=== PATIENT | female | born 1960 | race Caucasian/White ===

== ENCOUNTER → 2017-04-08 | Outpatient (CLI) | payer OTHER ==
[2017-04-08 09:46] LABS: ALBUMIN 3.9 GM/DL (3.2-5.2); ALBUMIN/GLOBULIN RATIO 1.18 (1.00-1.93); ALKALINE PHOSPHATASE 52 U/L (45-117); ALT/SGPT 20 U/L (12-78); ANION GAP 7 MEQ/L (8-16); AST/SGOT 9 U/L (7-37); BILIRUBIN,TOTAL 0.3 MG/DL (0.2-1.0); BLOOD UREA NITROGEN 20 MG/DL (7-18); CARBON DIOXIDE LEVEL 26 MEQ/L (21-32); CHLORIDE LEVEL 108 MEQ/L (98-107); CHOLESTEROL LEVEL 172 MG/DL (<200); CHOLESTEROL RISK RATIO 4.526 (<5); CREATININE FOR GFR 0.73 MG/DL (0.55-1.30); GLOMERULAR FILTRATION RATE > 60.0 (>51); GLUCOSE, FASTING 96 MG/DL (70-100); HDL CHOLESTEROL 38 MG/DL (>40); LDL CHOLESTEROL 118.4 MG/DL (<100); NON-HDL-C 134 MG/DL; POTASSIUM SERUM 4.3 MEQ/L (3.5-5.1); SODIUM LEVEL 141 MEQ/L (136-145); TOTAL PROTEIN 7.2 GM/DL (6.4-8.2); TRIGLYCERIDES LEVEL 78 MG/DL (<150)
[2017-04-10 09:17] LABS: TOTAL 25(OH) VITAMIN D 21.2 NG/ML (30.0-100.0)
== END ==
LOC: M LAB 08:33
DX: E55.9 Vitamin D deficiency, unspecified (principal); E78.00 Pure hypercholesterolemia, unspecified; F17.210 Nicotine dependence, cigarettes, uncomplicated
CPT/HCPCS: 84443

== ENCOUNTER → 2017-04-14 | Outpatient (CLI) | payer OTHER | LOC: M RAD 08:05 | DX: Z12.31 Encounter for screening mammogram for malignant neoplasm of breast (principal) | CPT/HCPCS: 77067 ==

== ENCOUNTER → 2017-04-26 | Outpatient (CLI) | payer OTHER | LOC: M EKG 11:41 | DX: Z01.818 Encounter for other preprocedural examination (principal) | CPT/HCPCS: 93005 ==

== ENCOUNTER 2017-05-01 09:29 | Day surgery (SDC) | payer OTHER ==
[~2017-05-01 09:29] MED LIST: KETOROLAC 60 MG/2 ML VIAL (J1885) As Ordered; LIDOCAINE 2% INJ 100 MG/5 ML SDV (FOR ANES.) As Ordered; ONDANSETRON 4MG/2ML VIAL (J2405) As Ordered; PROPOFOL 200 MG/20 ML VIAL As Ordered; ROCURONIUM BROMIDE 50 MG/5 ML VIAL As Ordered; dexameTHASONE 4 MG/ML 1ML VIAL (J1100) As Ordered
[2017-05-01] MEDS: METHYLENE BLUE 0.5% (5MG/ML) 10 ML AMP (PROVAYBLUE)(Q9968 PER 1MG) As Ordered (09:33)
[2017-05-01] MEDS ORDERED: ceFAZolin 2 GM/D5W 50 ML IV BAG (J0690 PER 500MG) As Ordered (09:37)
[2017-05-01] MEDS: LR 1,000 ML IV ×4 (09:45→20:58)
[2017-05-01 09:57] LABS: HEMATOCRIT 47.3 % (36.0-47.0); HEMOGLOBIN 15.9 g/dl (12.0-16.0); MEAN CORPUSCULAR HEMOGLOBIN 30.8 pg (27.0-33.0); MEAN CORPUSCULAR HGB CONC 33.6 g/dl (32.0-36.5); MEAN CORPUSCULAR VOLUME 91.5 fl (80.0-96.0); PLATELET COUNT, AUTOMATED 356 10^3/uL (150-450); RED BLOOD COUNT 5.17 10^6/uL (4.00-5.40); RED CELL DISTRIBUTION WIDTH 13.2 % (11.5-14.5); WHITE BLOOD COUNT 8.8 10^3/uL (4.0-10.0)
[2017-05-01 10:12] LABS: ANION GAP 9 MEQ/L (8-16); BLOOD UREA NITROGEN 13 MG/DL (7-18); CALCIUM LEVEL 9.4 MG/DL (8.5-10.1); CARBON DIOXIDE LEVEL 29 MEQ/L (21-32); CHLORIDE LEVEL 102 MEQ/L (98-107); CREATININE FOR GFR 0.86 MG/DL (0.55-1.30); GLOMERULAR FILTRATION RATE > 60.0 (>51); GLUCOSE, FASTING 105 MG/DL (70-100); POTASSIUM SERUM 3.9 MEQ/L (3.5-5.1); SODIUM LEVEL 140 MEQ/L (136-145)
[2017-05-01] MEDS: ACETAMINOPHEN 650 MG SUPP As Ordered (11:05)
[2017-05-01] MEDS ORDERED: fentaNYL 250 MCG/5 ML INJECTION (J3010) As Ordered (12:47)
[2017-05-01] MEDS ORDERED: PHENYLephrine HCL 500 MCG/5 ML (100MCG/ML) SYRINGE (J2370) As Ordered (12:47)
[2017-05-01] MEDS ORDERED: MIDAZOLAM INJ 2 MG/2 ML VIAL (J2250) As Ordered (12:47)
[2017-05-01] MEDS ORDERED: fentaNYL 100 MCG/2 ML INJECTION (J3010) As Ordered (13:11)
[2017-05-01] MEDS ORDERED: ROCURONIUM BROMIDE 50 MG/5 ML VIAL As Ordered ×2 (13:46)
[2017-05-01] MEDS: FLUORESCEIN 10% (100MG/ML) 5 ML VIAL As Ordered (14:00)
[2017-05-01] MEDS: BUPIVACAINE HCL 0.25% 30 ML VIAL As Ordered (15:02)
[2017-05-01] MEDS: LIDOCAINE W/EPINEPHRINE 1% 20ML VIAL As Ordered (15:15)
[2017-05-01] MEDS ORDERED: MEPERIDINE INJ 25 MG/ML VIAL (J2175) As Ordered (15:54)
[2017-05-01] MEDS: MEPERIDINE INJ 25 MG/ML VIAL (J2175) IV ×2 (16:00→16:05)
[2017-05-01] MEDS ORDERED: KETOROLAC 30 MG/ML VIAL (J1885) IV (16:15)
[2017-05-01] MEDS ORDERED: ONDANSETRON 4MG/2ML VIAL (J2405) IV (16:15)
[2017-05-01] MEDS ORDERED: PERCOCET 5MG/325MG TAB PO (16:15)
[2017-05-01] MEDS ORDERED: fentaNYL 100 MCG/2 ML INJECTION (J3010) IV (16:15)
[2017-05-01] MEDS: PERCOCET 5MG/325MG TAB PO (17:04)
[2017-05-01] MEDS: SIMETHICONE 80 MG CHEW TAB PO (19:15)
[2017-05-01] MEDS: CEFAZOLIN SOD 1 GM in APPROPRIATE DILUENT 1 EA IV (20:57)
[2017-05-02] MEDS: SIMETHICONE 80 MG CHEW TAB PO ×2 (00:48→06:29)
[2017-05-02] MEDS: IBUPROFEN 800 MG TAB PO ×2 (00:48→06:29)
== END 2017-05-02 10:00 | disposition home or self-care (01) ==
LOC: M SDC 09:29 → M PED 17:19
DX: N81.89 Other female genital prolapse (principal); K21.9 Gastro-esophageal reflux disease without esophagitis; G43.909 Migraine, unspecified, not intractable, without status migrainosus; T88.59XD Other complications of anesthesia, subsequent encounter; Z79.899 Other long term (current) drug therapy; Z98.51 Tubal ligation status; Z90.710 Acquired absence of both cervix and uterus; Z72.0 Tobacco use
CPT/HCPCS: 57288

== ENCOUNTER → 2017-05-23 | Outpatient (CLI) | payer OTHER ==
[2017-05-23 09:53] LABS: HEMATOCRIT 45.4 % (36.0-47.0); HEMOGLOBIN 14.9 g/dl (12.0-16.0); MEAN CORPUSCULAR HEMOGLOBIN 29.8 pg (27.0-33.0); MEAN CORPUSCULAR HGB CONC 32.8 g/dl (32.0-36.5); MEAN CORPUSCULAR VOLUME 90.8 fl (80.0-96.0); PLATELET COUNT, AUTOMATED 343 10^3/uL (150-450); RED CELL DISTRIBUTION WIDTH 13.4 % (11.5-14.5); WHITE BLOOD COUNT 7.3 10^3/uL (4.0-10.0)
[2017-05-23 10:32] LABS: ALBUMIN 3.7 GM/DL (3.2-5.2); ALBUMIN/GLOBULIN RATIO 1.12 (1.00-1.93); ALKALINE PHOSPHATASE 50 U/L (45-117); ALT/SGPT 19 U/L (12-78); ANION GAP 7 MEQ/L (8-16); AST/SGOT 13 U/L (7-37); BILIRUBIN,DIRECT 0.1 MG/DL (0.0-0.2); BILIRUBIN,TOTAL 0.3 MG/DL (0.2-1.0); BLOOD UREA NITROGEN 22 MG/DL (7-18); CALCIUM LEVEL 9.3 MG/DL (8.5-10.1); CARBON DIOXIDE LEVEL 31 MEQ/L (21-32); CHLORIDE LEVEL 104 MEQ/L (98-107); GLOMERULAR FILTRATION RATE > 60.0 (>51); GLUCOSE, FASTING 95 MG/DL (70-100); PHOSPHORUS LEVEL 3.7 MG/DL (2.5-4.9); POTASSIUM SERUM 4.2 MEQ/L (3.5-5.1); SODIUM LEVEL 142 MEQ/L (136-145)
== END ==
LOC: M LAB 09:22
DX: B35.1 Tinea unguium (principal); Z79.899 Other long term (current) drug therapy
CPT/HCPCS: 80076

== ENCOUNTER 2017-07-05 06:34 | Day surgery (SDC) | payer OTHER ==
[2017-07-05] MEDS: NS 1,000 ML IV (07:00)
[2017-07-05] MEDS ORDERED: LIDOCAINE 2% INJ 100 MG/5 ML SDV (FOR ANES.) As Ordered (07:24)
[2017-07-05] MEDS ORDERED: fentaNYL 100 MCG/2 ML INJECTION (J3010) As Ordered (07:24)
[2017-07-05] MEDS ORDERED: PROPOFOL 500 MG/50 ML VIAL As Ordered (07:24)
[2017-07-05] MEDS ORDERED: PHENYLephrine HCL 500 MCG/5 ML (100MCG/ML) SYRINGE (J2370) As Ordered (07:58)
[2017-07-05] MEDS ORDERED: ePHEDrine SULFATE 25 MG/5 ML(5MG/ML) SYRINGE As Ordered (08:13)
== END 2017-07-05 09:03 | disposition home or self-care (01) ==
LOC: M OPP 06:34
DX: Z12.11 Encounter for screening for malignant neoplasm of colon (principal); K64.1 Second degree hemorrhoids; D12.4 Benign neoplasm of descending colon; Z80.0 Family history of malignant neoplasm of digestive organs; K22.70 Barrett's esophagus without dysplasia; K29.70 Gastritis, unspecified, without bleeding; K29.80 Duodenitis without bleeding; K21.9 Gastro-esophageal reflux disease without esophagitis; F41.9 Anxiety disorder, unspecified; F32.9 Major depressive disorder, single episode, unspecified; G43.909 Migraine, unspecified, not intractable, without status migrainosus; Z88.8 Allergy status to other drugs, medicaments and biological substances; F17.210 Nicotine dependence, cigarettes, uncomplicated; Z78.0 Asymptomatic menopausal state; Z91.048 Other nonmedicinal substance allergy status; Z90.710 Acquired absence of both cervix and uterus; Z90.722 Acquired absence of ovaries, bilateral; Z87.440 Personal history of urinary (tract) infections; Z98.890 Other specified postprocedural states
CPT/HCPCS: 45385

== ENCOUNTER 2018-06-30 13:24 | Emergency (ER) | payer OTHER ==
[~2018-06-30] VITALS: Ht 165.1 cm; Wt 68.3 kg
[~2018-06-30 13:24] MED LIST changes: -KETOROLAC 60 MG/2 ML VIAL (J1885) As Ordered; -LIDOCAINE 2% INJ 100 MG/5 ML SDV (FOR ANES.) As Ordered; +OMEP40CA2 PO; -ONDANSETRON 4MG/2ML VIAL (J2405) As Ordered; +PERC5TAB12 PO; -PROPOFOL 200 MG/20 ML VIAL As Ordered; -ROCURONIUM BROMIDE 50 MG/5 ML VIAL As Ordered; +VITA200016 PO; -dexameTHASONE 4 MG/ML 1ML VIAL (J1100) As Ordered
[2018-06-30] MEDS ORDERED: OMEP-221 PO (13:36)
[2018-06-30] MEDS ORDERED: ALBUTEROL SULFATE 2.5 MG/0.5 ML INH NEB SOLN INH ONE (13:45)
[2018-06-30] MEDS ORDERED: NS 1,000 ML IV ONE (13:45)
[2018-06-30] MEDS ORDERED: IPRATROPIUM 0.5MG/ALBUTEROL 2.5MG INH SOL UD 3ML (DUONEB)(J7620) NEB ONE (13:45)
[2018-06-30 13:57] LABS: BASO # 0.1 10^3/uL (0.0-0.2); EOS # 0.2 10^3/uL (0.0-0.50); EOS % 3.5 % (0.0-3.0); HEMATOCRIT 44.7 % (36.0-47.0); LYMPH # 1.5 10^3/uL (1.5-4.5); MEAN CORPUSCULAR HEMOGLOBIN 30.7 pg (27.0-33.0); MEAN CORPUSCULAR HGB CONC 33.6 g/dl (32.0-36.5); MEAN CORPUSCULAR VOLUME 91.4 fl (80.0-96.0); MONO # 0.5 10^3/uL (0.0-0.8); MONO % 8.6 % (0.0-5.0); NEUTROPHILS # 3.9 10^3/uL (1.8-7.7); NEUTROPHILS % 62.6 % (36.0-66.0); PLATELET COUNT, AUTOMATED 264 10^3/uL (150-450); RED BLOOD COUNT 4.89 10^6/uL (4.00-5.40); WHITE BLOOD COUNT 6.3 10^3/uL (4.0-10.0)
--- NOTE | 2018-06-30 13:58 | REP ---
CT Head without contrast HISTORY: Headache COMPARISON: 11/16/2010 There is no intraparenchymal hemorrhage, acute infarct, mass or midline shift. The ventricular system is normal in appearance. There is no extra cerebral collection. There is no fracture. The visualized sinuses are clear. IMPRESSION: There is no intracranial lesion. Electronically Signed by Osbaldo Beyer MD 06/30/2018 01:50 P
--- NOTE | 2018-06-30 13:59 | REP ---
Chest one-view HISTORY: SIRS Comparison: 04/17/2012 The lungs are clear. The heart is normal in size. The pulmonary vasculature is normal in appearance. Impression: No acute disease. Electronically Signed by Osbaldo Beyer MD 06/30/2018 01:51 P
[2018-06-30 14:21] LABS: INFLUENZA A AMPLIFICATION POSITIVE (NEGATIVE); INFLUENZA B AMPLIFICATION NEGATIVE (NEGATIVE)
[2018-06-30 14:30] VITALS: BP 113/67
[2018-06-30 14:43] LABS: ALBUMIN 3.4 GM/DL (3.2-5.2); ALT/SGPT 27 U/L (12-78); BILIRUBIN,DIRECT < 0.1 MG/DL (0.0-0.2); BILIRUBIN,TOTAL 0.2 MG/DL (0.2-1.0); BLOOD UREA NITROGEN 12 MG/DL (7-18); CALCIUM LEVEL 8.5 MG/DL (8.5-10.1); CARBON DIOXIDE LEVEL 26 MEQ/L (21-32); CHLORIDE LEVEL 108 MEQ/L (98-107); CK-MB VALUE MASS < 1.0 NG/ML (<3.6); CPK CREATINE PHOSPHOKINASE 118 U/L (26-192); CREATININE FOR GFR 0.73 MG/DL (0.55-1.30); GLOMERULAR FILTRATION RATE > 60.0 (>51); GLUCOSE, FASTING 121 MG/DL (70-100); MB/CK RELATIVE INDEX 0.85 (< OR =4); NT-PRO BNP 100 PG/ML (<125); POTASSIUM SERUM 3.6 MEQ/L (3.5-5.1); SODIUM LEVEL 140 MEQ/L (136-145); THYROXINE (T4) 11.8 UG/DL (4.5-12.0); TOTAL PROTEIN 7.4 GM/DL (6.4-8.2); TROPONIN I < 0.02 NG/ML (< 0.10)
[2018-06-30] MEDS ORDERED: OSELTAMIVIR PHOSPHATE 75 MG CAP (TAMIFLU) PO ONE (14:45)
[2018-06-30] MEDS ORDERED: OSEL75CA PO (15:19)
--- NOTE | 2018-06-30 17:45 | ECGEPIP ---
Stationary ECG Study [facility] - ED Test Date: 2018-06-30 Pat Name: PARISH MARTINES Department: Room: - Gender: F City Superintendent: : 1960 Requested By: Ron Taylor Order Number: [id number] Reading MD: Ron Taylor Measurements Intervals [place] Rate: 91 P: 79 NC: 156 QRS: 78 QRSD: 91 T: 73 QT: 365 QTc: 450 Interpretive Statements SINUS RHYTHM POSSIBLE RIGHT ATRIAL ENLARGEMENT DELAYED R WAVE PROGRESSION NONSPECIFIC ST T WAVE CHANGES RATE DECREASED NONSPECIFIC ST T WAVE CHANGES Electronically Signed On 06-30-2018 17:45:12 EDT by Ron Taylor
== END 2018-06-30 15:28 | disposition home or self-care (01) ==
LOC: M ED 13:24
DX: J09.X9 Influenza due to identified novel influenza A virus with other manifestations (principal); K21.9 Gastro-esophageal reflux disease without esophagitis; Z79.899 Other long term (current) drug therapy; Z91.048 Other nonmedicinal substance allergy status; F17.210 Nicotine dependence, cigarettes, uncomplicated

== ENCOUNTER → 2018-11-13 | Outpatient (REF) | payer OTHER ==
[~2018-11-13] MED LIST changes: +OMEP-221 PO; -OMEP40CA2 PO; +OMEP40CA97 PO; +OSEL75CA PO
[2018-11-13 19:45] LABS: HEMATOCRIT 50.1 % (36.0-47.0); HEMOGLOBIN 16.7 g/dl (12.0-15.5); MEAN CORPUSCULAR HEMOGLOBIN 30.4 pg (27.0-33.0); MEAN CORPUSCULAR HGB CONC 33.3 g/dl (32.0-36.5); MEAN CORPUSCULAR VOLUME 91.1 fl (80.0-96.0); PLATELET COUNT, AUTOMATED 311 10^3/uL (150-450); WHITE BLOOD COUNT 11.3 10^3/uL (4.0-10.0)
[2018-11-13 20:02] LABS: ALBUMIN 4.2 GM/DL (3.2-5.2); ALT/SGPT 19 U/L (12-78); BILIRUBIN,TOTAL 0.4 MG/DL (0.2-1.0); BLOOD UREA NITROGEN 13 MG/DL (7-18); CARBON DIOXIDE LEVEL 29 MEQ/L (21-32); CHLORIDE LEVEL 103 MEQ/L (98-107); CHOLESTEROL LEVEL 201 MG/DL (<200); CHOLESTEROL RISK RATIO 4.466 (<5); CREATININE FOR GFR 0.71 MG/DL (0.55-1.30); FREE T4 1.29 NG/DL (0.76-1.46); GLOMERULAR FILTRATION RATE > 60.0 (>51); GLUCOSE, FASTING 84 MG/DL (70-100); HDL CHOLESTEROL 45 MG/DL (>40); LDL CHOLESTEROL 132 MG/DL (<100); NON-HDL-C 156 MG/DL; POTASSIUM SERUM 4.2 MEQ/L (3.5-5.1); SODIUM LEVEL 140 MEQ/L (136-145); TOTAL PROTEIN 7.4 GM/DL (6.4-8.2); TRIGLYCERIDES LEVEL 119 MG/DL (<150)
== END ==
LOC: M SFHCADAM 15:41
PROVIDERS: ATTEND Physician Assistant
DX: F17.210 Nicotine dependence, cigarettes, uncomplicated (principal); E78.00 Pure hypercholesterolemia, unspecified; R63.4 Abnormal weight loss

== ENCOUNTER → 2018-11-27 | Outpatient (CLI) | payer OTHER ==
[~2018-11-27] MED LIST changes: +OMEP40CA2 PO; -OMEP40CA97 PO
--- NOTE | 2018-11-27 13:36 | REPMRS ---
Patient History The patient states she has not had a clinical breast exam in over a year. Family history of breast cancer at age 27 in maternal cousin, colorectal cancer at age 65 in father. Patient states she had a right breast bx-benign 3D TOMOSYNTHESIS WAS PERFORMED. The Ashutosh Wen lifetime risk for breast cancer is 6.3%. Digital Mammo Screening Bilat: November 27, 2018 - Exam #: [id number] Bilateral CC and MLO view(s) were taken. Technologist: Nhi Mckeon, Technologist Prior study comparison: April 14, 2017, bilateral digital mammo screening bilat performed at [facility]. May 29, 2009, digital bilateral screening mammo, performed at [facility]. FINDINGS: There are scattered fibroglandular densities. There has been no change in the appearance of the mammogram from the prior studies. There is a mild amount of residual fibroglandular tissue which is fairly symmetric. There is no interval development of dominant mass, architectural distortion, or clustered microcalcification suggestive of malignancy. Assessment: BI-RADS/ACR category 1 mammogram. Negative Mammogram. Recommendation Routine screening mammogram in 1 year (for women over age 40). This mammogram was interpreted with the aid of an FDA-approved computer-aided dectection system. Electronically Signed By: Sunil Lam MD 11/27/18 0414
--- NOTE | 2018-11-27 15:10 | REP ---
Bilateral carotid artery duplex ultrasound: Peak flow velocity analysis: RIGHT LEFT ICA Peak flow velocity cm/sec the 98.2 62.1 ICA Diastolic flow velocity cm/sec 26.7 22.0 ICA/CCA Ratio 1.05 0.76 ECA Peak flow velocity cm/sec 85.3 57.7 CCA Peak flow velocity cm/sec 93.1 31.8 There is shallow atheromatous plaque in the bulbs bilaterally. The peak flow velocities are normal bilaterally. The The findings indicate less than 50% narrowing bilaterally. There is no significant stenosis on the right on the left. There is antegrade flow in the right vertebral artery. There is flow reversal in the left vertebral artery with cavernous part of this wave forms. This is compatible with subclavian steal. 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 Consider CTA of the aortic arch and brachiocephalic vessels. No significant carotid stenosis on the right on the left. Electronically Signed by Sunil Gaffney MD 11/27/2018 03:01 P
--- NOTE | 2018-11-29 06:38 | ECHO ---
DATE OF STUDY: 11/27/2018 DATE OF : 1960 AGE: 58 GENDER: Female. HEIGHT: 63 inches. WEIGHT: 120 pounds. BODY SURFACE AREA: 1.56 meters squared. OUTPATIENT. REFERRING PROVIDER: NAILA Mclaughlin INDICATION: Murmur. MEASUREMENTS: 2-D Measurements: RV: 2.7 cm LV: 4.6 cm Septum: 1.0 cm Posterior wall: 1.0 cm Aortic root: 2.8 cm LA: 3.2 cm LVEF: 70% Doppler Measurements: AV - 1.1 m/s LVOT: 0.9 m/s LVOT diameter: 2.0 cm MV - E 67 A 81 EA ratio 0.8 Early mitral deceleration time: 208 ms E prime: 8.6 A prime: 7.6 E/E prime ratio: 7.8 PV: 0.7 m/s Pulmonary artery acceleration time: 113 ms PASP: 32 mmHg IVC: 1.0 cm COMMENTS: Normal sinus rhythm without intraventricular conduction disturbance. M-mode and two-dimensional echocardiography was performed with pulsed, continuous wave, color flow and tissue Doppler studies. Normal left ventricular size, wall thickness and hyperkinetic wall motion. Normal left atrial size and Doppler assessment of LV diastolic function and estimated mean left atrial pressure. Normal right heart chamber sizes and motion and estimated pulmonary arterial pressure was upper limits of normal to borderline increased. Normal IVC size and collapse against an elevated central venous pressure. Normal appearing and functioning valvular structures. Normal aortic root size. No apparent intracardiac mass or pericardial effusion. Detected murmur is believed to be physiologic/flow related rather than organic.
== END ==
LOC: M CARPUL 12:03
PROVIDERS: ATTEND Physician Assistant
DX: I65.23 Occlusion and stenosis of bilateral carotid arteries (principal); R01.1 Cardiac murmur, unspecified; Z12.31 Encounter for screening mammogram for malignant neoplasm of breast

== ENCOUNTER → 2019-02-11 | Outpatient (CLI) | payer OTHER ==
[~2019-02-11] MED LIST changes: -OMEP40CA2 PO; +OMEP40CA97 PO
--- NOTE | 2019-02-11 09:32 | REP ---
RIGHT UPPER QUADRANT ULTRASOUND: Real-time sonographic evaluation of the right upper quadrant performed. Gallbladder demonstrates no evidence of intraluminal sludge or calculi. There is a tiny echogenic focus in the anterior wall of the gallbladder with distal ring-down artifact consistent with a tiny focus of adenomyomatosis. There is no gallbladder wall thickening. There is no intrahepatic or extrahepatic biliary dilatation, common bile duct measuring 3 mm. The liver and pancreas demonstrate no gross mass. Right kidney demonstrates no hydronephrosis with normal size 10.9 cm in length. No free fluid is seen. Visualized abdominal aorta is normal in caliber. IMPRESSION: Findings most consistent with a tiny focus of adenomyomatosis in the anterior gallbladder wall. No gallstones, gallbladder wall thickening, pericholecystic fluid or biliary dilatation. Electronically Signed by Sunil Lam MD 02/11/2019 03:45 P
== END ==
LOC: M RAD 06:26
PROVIDERS: ATTEND Surgery
DX: R10.11 Right upper quadrant pain (principal)

== ENCOUNTER → 2019-02-21 | Outpatient (CLI) | payer OTHER ==
--- NOTE | 2019-02-21 13:22 | REP ---
Hepatobiliary scan and gallbladder ejection fraction: History: Right upper quadrant pain Technique: 6.6 mCi of technetium-99m mebrofenin was injected and sequential anterior images are acquired. 65 minutes after the mebrofenin injection, the patient consumed 8 ounces Ensure and an additional 60 minutes of imaging was acquired. Regions of interest are plotted around the gallbladder. Findings: The initial hepatocellular parenchymal uptake phase is normal and homogeneous. Intra- and extra-hepatic bile ducts are labeled by the 10 -minute image. The gallbladder is first labeled on the 10 -minute image. There is normal washout from the liver parenchyma into the gallbladder and small intestine on subsequent images. The gallbladder ejection fraction is 74 %. Values greater than 35 % are considered normal with this technique. Impression: Normal hepatobiliary scan and normal gallbladder ejection fraction. Electronically Signed by Braulio Gama MD 02/21/2019 01:13 P
== END ==
LOC: M RAD 07:30
PROVIDERS: ATTEND Surgery
DX: R10.11 Right upper quadrant pain (principal)
CPT/HCPCS: 78227; A9537; J2805

== ENCOUNTER → 2019-07-31 | Outpatient (CLI) | payer OTHER ==
--- NOTE | 2019-08-01 03:17 | REP ---
Clinical: Cough . Comparison: 06/30/2018 . Technique: PA and lateral. Findings: The mediastinum and cardiac silhouette are normal. The lung adam are clear and without acute consolidation, effusion, or pneumothorax. The skeletal structures are intact and normal. Impression: 1. No acute cardiopulmonary process. Electronically Signed by Neftali Snow MD 08/01/2019 03:09 A
== END ==
LOC: M ADAMS 15:01
PROVIDERS: ATTEND Physician Assistant
DX: R05 Cough (principal)

== ENCOUNTER → 2020-01-23 | Outpatient (CLI) | payer OTHER ==
--- NOTE | 2020-01-23 15:25 | REP ---
INDICATION: LUMP OF LEFT WRIST COMPARISON: 11/06/2012 TECHNIQUE: AP, lateral, bilateral oblique views left. FINDINGS: The carpal bones, surrounding osseous structures, soft tissues, and joint spaces are essentially age-appropriate. Mild irregularity along the lateral aspect of the scaphoid bone is unchanged compared to prior examination and may reflect normal variant. There is no evidence for acute fracture or dislocation. No subcutaneous emphysema or radiodense foreign body. IMPRESSION: Essentially normal age-appropriate left wrist radiographs without significant change from prior examination. No obvious soft tissue abnormality noted. <Electronically signed by Neftali Snow > 01/23/20 [id number]
== END ==
LOC: M ADAMS 11:20
PROVIDERS: ATTEND Physician Assistant
DX: R22.32 Localized swelling, mass and lump, left upper limb (principal)

== ENCOUNTER → 2020-01-23 | Outpatient (REF) | payer OTHER ==
[2020-01-23 13:00] LABS: HEMATOCRIT 47.6 % (36.0-47.0); HEMOGLOBIN 15.3 g/dl (12.0-15.5); MEAN CORPUSCULAR HEMOGLOBIN 30.4 pg (27.0-33.0); MEAN CORPUSCULAR HGB CONC 32.1 g/dl (32.0-36.5); MEAN CORPUSCULAR VOLUME 94.4 fl (80.0-96.0); PLATELET COUNT, AUTOMATED 299 10^3/uL (150-450); RED BLOOD COUNT 5.04 10^6/uL (4.00-5.40); WHITE BLOOD COUNT 7.7 10^3/uL (4.0-10.0)
[2020-01-23 13:32] LABS: ALBUMIN 4.1 GM/DL (3.2-5.2); ALT/SGPT 26 U/L (12-78); BILIRUBIN,TOTAL 0.4 MG/DL (0.2-1.0); BLOOD UREA NITROGEN 14 MG/DL (7-18); CALCIUM LEVEL 9.8 MG/DL (8.5-10.1); CARBON DIOXIDE LEVEL 32 MEQ/L (21-32); CHLORIDE LEVEL 104 MEQ/L (98-107); CHOLESTEROL LEVEL 189 MG/DL (<200); CHOLESTEROL RISK RATIO 3.705 (<5); CREATININE FOR GFR 0.64 MG/DL (0.55-1.30); FREE T4 1.16 NG/DL (0.76-1.46); GLOMERULAR FILTRATION RATE > 60.0 (>51); GLUCOSE, FASTING 88 MG/DL (70-100); HDL CHOLESTEROL 51 MG/DL (>40); LDL CHOLESTEROL 113 MG/DL (<100); NON-HDL-C 138 MG/DL; POTASSIUM SERUM 4.1 MEQ/L (3.5-5.1); RHEUMATOID FACTOR QUANT < 10.0 IU/ML (<15.0); SODIUM LEVEL 140 MEQ/L (136-145); THYROID STIMULATING HORMONE 0.783 uIU/ML (0.358-3.740); TOTAL PROTEIN 7.6 GM/DL (6.4-8.2); TRIGLYCERIDES LEVEL 123 MG/DL (<150)
== END ==
LOC: M SFHCADAM 11:09
PROVIDERS: ATTEND Physician Assistant
DX: G45.8 Other transient cerebral ischemic attacks and related syndromes (principal); F17.210 Nicotine dependence, cigarettes, uncomplicated; E78.00 Pure hypercholesterolemia, unspecified; K22.70 Barrett's esophagus without dysplasia

== ENCOUNTER → 2020-03-03 | Outpatient (CLI) | payer OTHER ==
--- NOTE | 2020-03-03 11:50 | REP ---
INDICATION: N61.1 ABSCESS OF R BREAST - STAT. COMPARISON: None. TECHNIQUE: Targeted sonography, retroareolar region right breast. FINDINGS: At site of the tender erythematous lump in the retroareolar region of the right breast, there is a 2.7 x 3.2 x 1.3 cm subdermal hypoechoic collection with surrounding hyperemia. This is consistent with a small abscess. IMPRESSION: Findings consistent with a subdermal breast abscess in the retroareolar region measuring 2.7 x 3.2 x 1.3 cm. <Electronically signed by Narayan Gama > 03/03/20 114
== END ==
LOC: M WHC 11:13
PROVIDERS: ATTEND Family Medicine
DX: N61.1 Abscess of the breast and nipple (principal)

== ENCOUNTER → 2020-03-04 | Outpatient (REF) | payer OTHER | LOC: M LAB REF 15:07 | PROVIDERS: ATTEND Surgery | DX: N61.1 Abscess of the breast and nipple (principal) ==

== ENCOUNTER → 2021-12-10 | Outpatient (CLI) | payer OTHER ==
[~2021-12-10] MED LIST changes: -OMEP-221 PO; +OMEP40CA4 PO; +OMEP40CA5 PO; -OMEP40CA97 PO
[2021-12-10 11:20] LABS: HEMATOCRIT 48.3 % (36.0-47.0); HEMOGLOBIN 15.4 g/dl (12.0-15.5); MEAN CORPUSCULAR HEMOGLOBIN 30.3 pg (27.0-33.0); MEAN CORPUSCULAR HGB CONC 31.9 g/dl (32.0-36.5); MEAN CORPUSCULAR VOLUME 95.1 fl (80.0-96.0); PLATELET COUNT, AUTOMATED 280 10^3/uL (150-450); RED BLOOD COUNT 5.08 10^6/uL (4.00-5.40)
[2021-12-10 11:59] LABS: ALBUMIN 3.8 GM/DL (3.2-5.2); ALT/SGPT 21 U/L (12-78); BILIRUBIN,TOTAL 0.4 MG/DL (0.2-1.0); BLOOD UREA NITROGEN 14 MG/DL (7-18); CALCIUM LEVEL 9.6 MG/DL (8.5-10.1); CARBON DIOXIDE LEVEL 28 MEQ/L (21-32); CHLORIDE LEVEL 106 MEQ/L (98-107); CREATININE FOR GFR 0.78 MG/DL (0.55-1.30); GLOMERULAR FILTRATION RATE > 60.0 (>51); GLUCOSE, FASTING 97 MG/DL (70-100); POTASSIUM SERUM 4.5 MEQ/L (3.5-5.1); SODIUM LEVEL 140 MEQ/L (136-145); TOTAL PROTEIN 7.2 GM/DL (6.4-8.2)
== END ==
LOC: M LAB 10:44
PROVIDERS: ATTEND Physician Assistant
DX: Z12.31 Encounter for screening mammogram for malignant neoplasm of breast (principal); K22.70 Barrett's esophagus without dysplasia; G45.8 Other transient cerebral ischemic attacks and related syndromes; R05.1 Acute cough; F17.218 Nicotine dependence, cigarettes, with other nicotine-induced disorders; J44.9 Chronic obstructive pulmonary disease, unspecified

== ENCOUNTER → 2022-03-03 | Outpatient (CLI) | payer OTHER | LOC: M WHC 08:14 | PROVIDERS: ATTEND Surgery | DX: Z87.42 Personal history of other diseases of the female genital tract (principal) ==

== ENCOUNTER → 2022-09-21 | Outpatient (REF) | payer OTHER ==
[~2022-09-21] MED LIST changes: +ALBU8.5H INH; +BENZ-18 PO; +LORA-674 PO
[2022-09-21 15:09] LABS: HEMATOCRIT 50.9 % (36.0-47.0); HEMOGLOBIN 16.5 g/dl (12.0-15.5); MEAN CORPUSCULAR HEMOGLOBIN 30.6 pg (27.0-33.0); MEAN CORPUSCULAR HGB CONC 32.4 g/dl (32.0-36.5); MEAN CORPUSCULAR VOLUME 94.3 fl (80.0-96.0); PLATELET COUNT, AUTOMATED 319 10^3/uL (150-450); WHITE BLOOD COUNT 9.8 10^3/uL (4.0-10.0)
[2022-09-21 15:42] LABS: ALBUMIN 4.1 G/DL (3.2-5.2); ALKALINE PHOSPHATASE 53 U/L (46-116); ALT/SGPT 15 U/L (7.0-40); AST/SGOT 12 U/L (<34); BILIRUBIN,TOTAL 0.4 MG/DL (0.3-1.2); BLOOD UREA NITROGEN 16 MG/DL (9-23); CALCIUM LEVEL 9.6 MG/DL (8.3-10.6); CARBON DIOXIDE LEVEL 28 MMOL/L (20-31); CHLORIDE LEVEL 104 MMOL/L (98-107); CHOLESTEROL LEVEL 200 MG/DL (<200); CHOLESTEROL RISK RATIO 4.36 (<5); CREATININE FOR GFR 0.65 MG/DL (0.55-1.30); GLOMERULAR FILTRATION RATE > 60.0 (>45); GLUCOSE, FASTING 87 MG/DL (74-106); HDL CHOLESTEROL 45.8 MG/DL (>40); NON-HDL-C 154.2 MG/DL; POTASSIUM SERUM 4.1 MMOL/L (3.5-5.1); SODIUM LEVEL 141 MMOL/L (136-145); TOTAL PROTEIN 7.4 G/DL (5.7-8.2); TRIGLYCERIDES LEVEL 131 MG/DL (<150)
[2022-09-21 15:44] LABS: FREE T4 1.32 NG/DL (0.89-1.76); THYROID STIMULATING HORMONE 1.013 uIU/ML (0.55-4.78)
== END ==
LOC: M SFHCADAM 11:20
PROVIDERS: ATTEND Physician Assistant
DX: I10 Essential (primary) hypertension (principal); F17.218 Nicotine dependence, cigarettes, with other nicotine-induced disorders; J44.9 Chronic obstructive pulmonary disease, unspecified; E78.00 Pure hypercholesterolemia, unspecified; Z01.818 Encounter for other preprocedural examination

== ENCOUNTER 2022-09-26 07:05 | Day surgery (SDC) | payer OTHER ==
[~2022-09-26] VITALS: Ht 157.5 cm; Wt 63.1 kg
[~2022-09-26 07:05] MED LIST changes: +CYCLOPENTOLATE 1% OPHTH SOLN 2ML BTL OS SCH; +FLURBIPROFEN 0.03% OPHTH SOLN 2.5 ML OS SCH; +LIDOCAINE 1% SDV 5ML VIAL As Ordered ONE; +LR 1,000 ML IV SCH; +PHENYLEPHRINE 2.5% OPHTH SOL 2ML OS SCH; +TETRACAINE 0.5% OPHTH SOLN 4ML OS SCH
[2022-09-26] MEDS ORDERED: ATOR1TAB21 PO (09:10)
[2022-09-26] MEDS ORDERED: LOSA50TA28 PO (09:10)
[2022-09-26] MEDS ORDERED: MIDAZOLAM INJ 2MG/2ML VIAL As Ordered ONE (10:44)
[2022-09-26] MEDS ORDERED: fentaNYL 100 MCG/2 ML INJECTION As Ordered ONE (10:44)
[2022-09-26 11:07] VITALS: BP 113/68; TEMP 97.9; O2SAT 93
== END 2022-09-26 11:58 | disposition home or self-care (01) ==
LOC: M SDC 07:05
PROVIDERS: ATTEND Ophthalmology
DX: H25.12 Age-related nuclear cataract, left eye (principal); K21.9 Gastro-esophageal reflux disease without esophagitis; G43.909 Migraine, unspecified, not intractable, without status migrainosus; Z79.51 Long term (current) use of inhaled steroids; Z79.899 Other long term (current) drug therapy; Z91.040 Latex allergy status; F17.210 Nicotine dependence, cigarettes, uncomplicated
CPT/HCPCS: 66984; J2250; J3010; V2632

== ENCOUNTER 2022-10-31 08:50 | Day surgery (SDC) | payer OTHER ==
[~2022-10-31] VITALS: Ht 160 cm; Wt 63.5 kg
[~2022-10-31 08:50] MED LIST changes: +ATOR1TAB21 PO; +CYCLOPENTOLATE 1% OPHTH SOLN 2ML BTL OD SCH; -CYCLOPENTOLATE 1% OPHTH SOLN 2ML BTL OS SCH; +FLURBIPROFEN 0.03% OPHTH SOLN 2.5 ML OD SCH; -FLURBIPROFEN 0.03% OPHTH SOLN 2.5 ML OS SCH; +LORA-1041 PO; -LORA-674 PO; +LOSA50TA28 PO; +PHENYLEPHRINE 2.5% OPHTH SOL 2ML OD SCH; -PHENYLEPHRINE 2.5% OPHTH SOL 2ML OS SCH; -TETRACAINE 0.5% OPHTH SOLN 4ML OS SCH
[2022-10-31] MEDS ORDERED: CEFUROXIME 1MG/0.1ML INTRACAMERAL INJ As Ordered ONE (09:24)
[2022-10-31] MEDS: TETRACAINE 0.5% OPHTH SOLN 4ML OD SCH ×2 (09:30→10:44)
[2022-10-31] MEDS ORDERED: MIDAZOLAM INJ 2MG/2ML VIAL As Ordered ONE (10:37)
[2022-10-31] MEDS ORDERED: LABETALOL 100MG/20ML VIAL As Ordered ONE (10:41)
[2022-10-31 11:06] VITALS: BP 188/84; TEMP 97.3; O2SAT 93
== END 2022-10-31 11:26 | disposition home or self-care (01) ==
LOC: M SDC 08:50
PROVIDERS: ATTEND Ophthalmology
DX: H25.11 Age-related nuclear cataract, right eye (principal); K22.70 Barrett's esophagus without dysplasia; E78.5 Hyperlipidemia, unspecified; E55.9 Vitamin D deficiency, unspecified; F17.210 Nicotine dependence, cigarettes, uncomplicated; E78.00 Pure hypercholesterolemia, unspecified; Z91.040 Latex allergy status; G43.909 Migraine, unspecified, not intractable, without status migrainosus; Z79.51 Long term (current) use of inhaled steroids; Z79.899 Other long term (current) drug therapy
CPT/HCPCS: 66984; J0697; J1920; J2250; V2632

== ENCOUNTER 2022-12-28 06:39 | Day surgery (SDC) | payer OTHER ==
[~2022-12-28] VITALS: Ht 160 cm; Wt 62.9 kg
[~2022-12-28 06:39] MED LIST changes: -CYCLOPENTOLATE 1% OPHTH SOLN 2ML BTL OD SCH; -FLURBIPROFEN 0.03% OPHTH SOLN 2.5 ML OD SCH; -LIDOCAINE 1% SDV 5ML VIAL As Ordered ONE; -LR 1,000 ML IV SCH; +NS 1,000 ML IV ONE; -PHENYLEPHRINE 2.5% OPHTH SOL 2ML OD SCH
[2022-12-28] MEDS ORDERED: propofoL 500 MG/50 ML VIAL As Ordered ONE (07:14)
[2022-12-28] MEDS ORDERED: LIDOCAINE 2% 100MG/5ML SDV (FOR ANES.) As Ordered ONE (07:14)
[2022-12-28] MEDS ORDERED: fentaNYL 100 MCG/2 ML INJECTION As Ordered ONE (07:15)
[2022-12-28 08:06] VITALS: TEMP 96.8
[2022-12-28] MEDS ORDERED: ONDANSETRON 4MG 2ML VIAL As Ordered ONE (08:30)
[2022-12-28 08:35] VITALS: BP 148/82; O2SAT 96
== END 2022-12-28 08:42 | disposition home or self-care (01) ==
LOC: M OPP 06:39
PROVIDERS: ATTEND Surgery
DX: Z12.11 Encounter for screening for malignant neoplasm of colon (principal); K64.0 First degree hemorrhoids; K22.70 Barrett's esophagus without dysplasia; K22.89 Other specified disease of esophagus; K29.70 Gastritis, unspecified, without bleeding; K29.80 Duodenitis without bleeding; K21.9 Gastro-esophageal reflux disease without esophagitis; Z86.010 Personal history of colon polyps; I10 Essential (primary) hypertension; F17.210 Nicotine dependence, cigarettes, uncomplicated; Z79.899 Other long term (current) drug therapy; Z80.0 Family history of malignant neoplasm of digestive organs
CPT/HCPCS: 43239; 88305; G0105; J3010

== ENCOUNTER → 2023-01-31 | Outpatient (REF) | payer OTHER ==
[~2023-01-31] MED LIST changes: -NS 1,000 ML IV ONE
[2023-01-31 13:52] LABS: ALKALINE PHOSPHATASE 45 U/L (46-116); ALT/SGPT 16 U/L (7.0-40); AST/SGOT 13 U/L (<34); BILIRUBIN,TOTAL 0.4 MG/DL (0.3-1.2); BLOOD UREA NITROGEN 19 MG/DL (9-23); CALCIUM LEVEL 9.7 MG/DL (8.3-10.6); CARBON DIOXIDE LEVEL 30 MMOL/L (20-31); CHLORIDE LEVEL 104 MMOL/L (98-107); CHOLESTEROL LEVEL 143 MG/DL (<200); CHOLESTEROL RISK RATIO 3.01 (<5); CREATININE FOR GFR 0.78 MG/DL (0.55-1.30); GLOMERULAR FILTRATION RATE > 60.0 (>45); GLUCOSE, FASTING 97 MG/DL (74-106); HDL CHOLESTEROL 47.5 MG/DL (>40); LDL CHOLESTEROL 77.9 MG/DL (<100); NON-HDL-C 95.5 MG/DL; POTASSIUM SERUM 4.4 MMOL/L (3.5-5.1); SODIUM LEVEL 137 MMOL/L (136-145); TOTAL PROTEIN 7.3 G/DL (5.7-8.2); TRIGLYCERIDES LEVEL 88 MG/DL (<150)
[2023-01-31 14:15] LABS: CREATININE, URINE 21.4 MG/DL; MAU/CREAT RATIO 280.3 MCG/MG (0.0-30.0)
== END ==
LOC: M SFHCADAM 08:30
PROVIDERS: ATTEND Physician Assistant
DX: F17.218 Nicotine dependence, cigarettes, with other nicotine-induced disorders (principal); E78.00 Pure hypercholesterolemia, unspecified

== ENCOUNTER → 2023-04-21 | Outpatient (CLI) | payer OTHER | LOC: M RAD 06:29 | PROVIDERS: ATTEND Physician Assistant | DX: Z12.2 Encounter for screening for malignant neoplasm of respiratory organs (principal); F17.218 Nicotine dependence, cigarettes, with other nicotine-induced disorders ==

== ENCOUNTER → 2023-10-16 | Outpatient (CLI) | payer OTHER | LOC: M WHC 08:18 | PROVIDERS: ATTEND Physician Assistant | DX: Z12.31 Encounter for screening mammogram for malignant neoplasm of breast (principal) ==

== ENCOUNTER → 2023-11-14 | Outpatient (REF) | payer OTHER ==
[2023-11-14 13:27] LABS: BASO # 0.1 10^3/uL (0.0-0.2); EOS # 0.1 10^3/uL (0.0-0.5); EOS % 1.2 % (0.0-3.0); HEMATOCRIT 45.7 % (36.0-47.0); HEMOGLOBIN 15.3 g/dl (12.0-15.5); LYMPH # 2.1 10^3/uL (1.5-5.0); LYMPH % 21.5 % (24.0-44.0); MEAN CORPUSCULAR HEMOGLOBIN 31.7 pg (27.0-33.0); MEAN CORPUSCULAR HGB CONC 33.5 g/dl (32.0-36.5); MEAN CORPUSCULAR VOLUME 94.6 fl (80.0-96.0); MONO # 0.7 10^3/uL (0.0-0.8); MONO % 7.2 % (2.0-8.0); NEUTROPHILS # 6.8 10^3/uL (1.5-8.5); NEUTROPHILS % 68.7 % (36.0-66.0); PLATELET COUNT, AUTOMATED 278 10^3/uL (150-450); RED BLOOD COUNT 4.83 10^6/uL (4.00-5.40)
[2023-11-14 13:32] LABS: ALKALINE PHOSPHATASE 47 U/L (46-116); ALT/SGPT 20 U/L (7.0-40); AST/SGOT 10 U/L (<34); BILIRUBIN,TOTAL 0.4 MG/DL (0.3-1.2); BLOOD UREA NITROGEN 24 MG/DL (9-23); CALCIUM LEVEL 9.8 MG/DL (8.3-10.6); CARBON DIOXIDE LEVEL 30 MMOL/L (20-31); CHLORIDE LEVEL 107 MMOL/L (98-107); CREATININE FOR GFR 0.86 MG/DL (0.55-1.30); GLOMERULAR FILTRATION RATE > 60.0 (>45); GLUCOSE, FASTING 101 MG/DL (74-106); POTASSIUM SERUM 4.4 MMOL/L (3.5-5.1); SODIUM LEVEL 138 MMOL/L (136-145); THYROID STIMULATING HORMONE 1.035 uIU/ML (0.55-4.78); TOTAL PROTEIN 7.2 G/DL (5.7-8.2)
[2023-11-14 13:33] LABS: FREE T4 1.45 NG/DL (0.89-1.76)
== END ==
LOC: M SFHCADAM 09:47
PROVIDERS: ATTEND Physician Assistant
DX: J44.9 Chronic obstructive pulmonary disease, unspecified (principal); F17.218 Nicotine dependence, cigarettes, with other nicotine-induced disorders; Z23 Encounter for immunization; I10 Essential (primary) hypertension; E78.00 Pure hypercholesterolemia, unspecified

== ENCOUNTER → 2023-12-05 | Outpatient (CLI) | payer OTHER | LOC: M ADAMS 08:23 | PROVIDERS: ATTEND Physician Assistant Medical | DX: J44.1 Chronic obstructive pulmonary disease with (acute) exacerbation (principal) ==

== ENCOUNTER → 2024-06-11 | Outpatient (CLI) | payer OTHER | LOC: M RAD 08:07 | PROVIDERS: ATTEND Physician Assistant | DX: R05.3 Chronic cough (principal); F17.218 Nicotine dependence, cigarettes, with other nicotine-induced disorders; Z80.1 Family history of malignant neoplasm of trachea, bronchus and lung ==

== ENCOUNTER → 2024-09-12 | Outpatient (CLI) | payer OTHER ==
[~2024-09-12] MED LIST changes: +ALBU2.5V10 INH; +ECOT81TA5 PO; +FAMO40TA3 PO; +STIO1AER INH; +THERTAB52 PO; +XALA0.007 OU
[2024-09-12 10:48] LABS: ALT/SGPT 17.0 U/L (7.0-40); AST/SGOT 18.0 U/L (<34); CALCIUM LEVEL 9.3 MG/DL (8.3-10.6); CARBON DIOXIDE LEVEL 26.0 MMOL/L (20-31); CHLORIDE LEVEL 107.0 MMOL/L (98-107); CREATININE FOR GFR 0.91 MG/DL (0.55-1.30); GLOMERULAR FILTRATION RATE 71.3 (>45); POTASSIUM SERUM 4.5 MMOL/L (3.5-5.1); SODIUM LEVEL 140.0 MMOL/L (136-145)
== END ==
LOC: M PLALAB 09:03
PROVIDERS: ATTEND Physician Assistant
DX: G45.8 Other transient cerebral ischemic attacks and related syndromes (principal); F17.218 Nicotine dependence, cigarettes, with other nicotine-induced disorders; F32.1 Major depressive disorder, single episode, moderate; F41.9 Anxiety disorder, unspecified; Z12.31 Encounter for screening mammogram for malignant neoplasm of breast; I10 Essential (primary) hypertension; J44.9 Chronic obstructive pulmonary disease, unspecified; K21.9 Gastro-esophageal reflux disease without esophagitis; K22.70 Barrett's esophagus without dysplasia

== ENCOUNTER → 2024-09-24 | Outpatient (CLI) | payer OTHER | LOC: M PLARAD 11:50 | PROVIDERS: ATTEND Otolaryngology | DX: C32.9 Malignant neoplasm of larynx, unspecified (principal) | CPT/HCPCS: 78815; A9552 ==

== ENCOUNTER → 2024-09-30 | Outpatient (CLI) | payer OTHER ==
[~2024-09-30] MED LIST changes: +DIAZ2TAB PO
== END ==
LOC: M ONCR 14:41
PROVIDERS: ATTEND General Practice
DX: C32.0 Malignant neoplasm of glottis (principal); F17.218 Nicotine dependence, cigarettes, with other nicotine-induced disorders; Z90.710 Acquired absence of both cervix and uterus; Z80.1 Family history of malignant neoplasm of trachea, bronchus and lung; Z80.0 Family history of malignant neoplasm of digestive organs; Z91.048 Other nonmedicinal substance allergy status; Z91.040 Latex allergy status; Z79.82 Long term (current) use of aspirin; Z79.899 Other long term (current) drug therapy

== ENCOUNTER → 2024-10-01 | Outpatient (CLI) | payer OTHER | LOC: M RAD 07:10 | PROVIDERS: ATTEND Otolaryngology | DX: J32.0 Chronic maxillary sinusitis (principal); J34.1 Cyst and mucocele of nose and nasal sinus; D38.0 Neoplasm of uncertain behavior of larynx ==

== ENCOUNTER → 2024-10-17 | Outpatient (CLI) | payer OTHER ==
[~2024-10-17] MED LIST changes: +DIPH12.529 PO; +MAGICMW SSP
== END ==
LOC: M WHC 06:52
PROVIDERS: ATTEND Physician Assistant
DX: Z12.31 Encounter for screening mammogram for malignant neoplasm of breast (principal)

== ENCOUNTER 2024-11-01 09:33 | Outpatient (RCR) | payer OTHER ==
[2024-11-06] MEDS ORDERED: OXYC1SOL3 PO (10:03)
[2024-11-06] MEDS ORDERED: ONDA-282 PO (10:03)
== END 2024-11-03 ==
LOC: M ONCR 09:33
PROVIDERS: ATTEND General Practice
DX: Z51.0 Encounter for antineoplastic radiation therapy (principal); C32.0 Malignant neoplasm of glottis

== ENCOUNTER 2024-11-27 10:00 | Outpatient (RCR) | payer OTHER ==
[~2024-11-27 10:00] MED LIST changes: +MUCI1LIQ3 PO; +ONDA-282 PO; +OXYC1SOL3 PO
[2024-12-04] MEDS ORDERED: OLAN1TAB16 PO (09:07)
== END 2024-12-03 ==
LOC: M ONCR 10:00
PROVIDERS: ATTEND General Practice
DX: Z51.0 Encounter for antineoplastic radiation therapy (principal); C32.0 Malignant neoplasm of glottis

== ENCOUNTER → 2024-12-04 | Outpatient (CLI) | payer OTHER ==
[~2024-12-04] MED LIST changes: +OLAN1TAB16 PO
== END ==
LOC: M ONCR 08:35
PROVIDERS: ATTEND General Practice
DX: C32.0 Malignant neoplasm of glottis (principal); Z92.3 Personal history of irradiation; Z79.891 Long term (current) use of opiate analgesic

== ENCOUNTER → 2024-12-24 | Outpatient (CLI) | payer OTHER ==
[2024-12-24 11:48] LABS: CREATININE FOR GFR 0.91 MG/DL (0.55-1.30); GLOMERULAR FILTRATION RATE 71.3 (>45)
== END ==
LOC: M PLALAB 09:04
PROVIDERS: ATTEND Physician Assistant
DX: I65.22 Occlusion and stenosis of left carotid artery (principal)

== ENCOUNTER → 2024-12-25 | Outpatient (CLI) | payer OTHER ==
[~2024-12-25] MED LIST changes: +ISOVUE-370 76% 100 ML VIAL As Ordered ONE
== END ==
LOC: M RAD 14:28
PROVIDERS: ATTEND Surgery Vascular Surgery
DX: I65.22 Occlusion and stenosis of left carotid artery (principal); J43.9 Emphysema, unspecified; I65.02 Occlusion and stenosis of left vertebral artery
CPT/HCPCS: 70498; Q9967

== ENCOUNTER → 2025-02-24 | Outpatient (CLI) | payer OTHER | LOC: M RAD 09:46 | PROVIDERS: ATTEND General Practice | DX: C32.0 Malignant neoplasm of glottis (principal) | CPT/HCPCS: 70491; 82565; Q9967 ==